=== PATIENT | female | born 1945 | race Caucasian/White ===

== ENCOUNTER → 2016-11-30 | Outpatient (CLI) | payer MEDICARE, OTHER ==
[~2016-11-30] MED LIST: ANTIVERT25 MG PO; AUGMENTIN 500 M1 TAB PO; MASON NATURAL2000 IU PO; METOPROLOL SR50 MG PO; SYNTHROID,LEV112 MCG PO; VICODIN 5/500 505 MG PO; Zofran4 MG PO
[2016-11-30 08:57] LABS: BASO % 0.4 % (0.0-1.0); EOS # 0.1 10*3/uL (0.0-0.4); EOS % 2.7 % (1.0-4.0); HEMATOCRIT 40.5 % (37.0-47.0); HEMOGLOBIN 13.3 g/dl (12.0-16.0); LYMPH # 1.1 10*3/uL (1.3-4.4); LYMPH % 20.9 % (27.0-41.0); MEAN CORPUSCULAR HGB 30.2 pg (27.0-31.0); MEAN CORPUSCULAR HGB CONC 32.8 g/dl (33.0-37.0); MEAN PLATELET VOLUME 9.5 fl (9.6-12.3); MONO # 0.4 10*3/uL (0.1-1.0); MONO % 7.4 % (3.0-9.0); NEUT # 3.5 10*3/uL (2.3-7.9); NEUT % 68.4 % (47.0-73.0); PLATELET COUNT AUTOMATED 153 10*3/uL (130-400); RED CELL DISTRI WIDTH 13.7 % (0-14.5); WHITE BLOOD COUNT 5.2 10*3/uL (4.8-10.8)
[2016-11-30 09:32] LABS: ALBUMIN 3.9 gm/dl (3.1-4.5); ALKALINE PHOSPHATASE 60 U/L (45-117); BILIRUBIN, TOTAL 0.6 mg/dl (0.2-1.0); BUN 17 mg/dl (7-24); CARBON DIOXIDE 30 mmol/L (21-32); CHLORIDE 108 mmol/L (98-107); CHOLESTEROL 141 mg/dL (<200); EST GLOM FILT AFRICAN AMERICAN > 60 ml/min; FREE T4 1.13 ng/dl (0.76-1.46); GLUCOSE 91 mg/dL (65-99); HDL CHOLESTEROL 53 mg/dl (40-60); LDL CHOLESTEROL 69 mg/dL (9-159); POTASSIUM 4.5 mmol/L (3.5-5.1); SGOT/AST 22 IU/L (3-35); SGPT/ALT 40 U/L (12-78); SODIUM 143 mmol/L (136-145); TOTAL PROTEIN 6.9 gm/dL (6.4-8.2); TRIGLYCERIDES 96 mg/dl (<150); VLDL CHOLESTEROL 19 mg/dL (6-40)
== END | disposition home or self-care (01) ==
LOC: LAB 08:40
PROVIDERS: Internal Medicine Endocrinology, Diabetes & Metabolism
DX: I10 Essential (primary) hypertension (principal); M51.27 Other intervertebral disc displacement, lumbosacral region; E03.8 Other specified hypothyroidism; E55.9 Vitamin D deficiency, unspecified; E78.00 Pure hypercholesterolemia, unspecified

== ENCOUNTER → 2017-03-02 | Outpatient (CLI) | payer MEDICARE ==
[2017-03-02 09:06] LABS: BASO % 0.4 % (0.0-1.0); EOS # 0.1 10*3/uL (0.0-0.4); EOS % 2.7 % (1.0-4.0); HEMATOCRIT 40.9 % (37.0-47.0); HEMOGLOBIN 13.1 g/dl (12.0-16.0); LYMPH # 1.1 10*3/uL (1.3-4.4); LYMPH % 20.8 % (27.0-41.0); MEAN CELL VOLUME 93.2 fl (81.0-99.0); MEAN CORPUSCULAR HGB 29.8 pg (27.0-31.0); MEAN PLATELET VOLUME 10.2 fl (9.6-12.3); MONO # 0.4 10*3/uL (0.1-1.0); MONO % 7.9 % (3.0-9.0); NEUT # 3.5 10*3/uL (2.3-7.9); PLATELET COUNT AUTOMATED 160 10*3/uL (130-400); RED BLOOD COUNT 4.39 10*6/uL (4.10-5.10); WHITE BLOOD COUNT 5.2 10*3/uL (4.8-10.8)
[2017-03-02 09:41] LABS: BUN 18 mg/dl (7-24); CARBON DIOXIDE 28 mmol/L (21-32); CHLORIDE 106 mmol/L (98-107); CHOLESTEROL 146 mg/dL (<200); EST GLOM FILT AFRICAN AMERICAN > 60 ml/min; GLUCOSE 87 mg/dL (65-99); HDL CHOLESTEROL 54 mg/dl (40-60); LDL CHOLESTEROL 73 mg/dL (9-159); POTASSIUM 4.2 mmol/L (3.5-5.1); SGPT/ALT 40 U/L (12-78); SODIUM 144 mmol/L (136-145); TRIGLYCERIDES 93 mg/dl (<150); VLDL CHOLESTEROL 19 mg/dL (6-40)
[2017-03-02 09:48] LABS: FREE T4 1.39 ng/dl (0.76-1.46)
== END | disposition home or self-care (01) ==
LOC: LAB 08:16
PROVIDERS: Internal Medicine Endocrinology, Diabetes & Metabolism
DX: I10 Essential (primary) hypertension (principal); E03.8 Other specified hypothyroidism; E78.00 Pure hypercholesterolemia, unspecified; E55.9 Vitamin D deficiency, unspecified; M81.8 Other osteoporosis without current pathological fracture

== ENCOUNTER → 2017-06-01 | Outpatient (CLI) | payer MEDICARE ==
[2017-06-01 09:34] LABS: BASO % 0.4 % (0.0-1.0); EOS # 0.1 10*3/uL (0.0-0.4); EOS % 2.3 % (1.0-4.0); HEMATOCRIT 40.6 % (37.0-47.0); HEMOGLOBIN 13.1 g/dl (12.0-16.0); LYMPH % 19.5 % (27.0-41.0); MEAN CELL VOLUME 93.8 fl (81.0-99.0); MEAN CORPUSCULAR HGB 30.3 pg (27.0-31.0); MEAN CORPUSCULAR HGB CONC 32.3 g/dl (33.0-37.0); MEAN PLATELET VOLUME 10.3 fl (9.6-12.3); MONO # 0.4 10*3/uL (0.1-1.0); MONO % 7.9 % (3.0-9.0); NEUT # 3.7 10*3/uL (2.3-7.9); NEUT % 69.7 % (47.0-73.0); PLATELET COUNT AUTOMATED 143 10*3/uL (130-400); RED BLOOD COUNT 4.33 10*6/uL (4.10-5.10); RED CELL DISTRI WIDTH 13.9 % (0-14.5); WHITE BLOOD COUNT 5.3 10*3/uL (4.8-10.8)
[2017-06-01 10:01] LABS: BUN 17 mg/dl (7-24); CHLORIDE 109 mmol/L (98-107); CHOLESTEROL 166 mg/dL (<200); CREATININE 0.76 mg/dL (0.55-1.02); HDL CHOLESTEROL 44 mg/dl (40-60); LDL CHOLESTEROL 97 mg/dL (9-159); POTASSIUM 4.1 mmol/L (3.5-5.1); SGPT/ALT 32 U/L (12-78); SODIUM 143 mmol/L (136-145); TRIGLYCERIDES 127 mg/dl (<150); VLDL CHOLESTEROL 25 mg/dL (6-40)
== END | disposition home or self-care (01) ==
LOC: LAB 08:57
PROVIDERS: Internal Medicine Endocrinology, Diabetes & Metabolism
DX: E78.00 Pure hypercholesterolemia, unspecified (principal); E03.8 Other specified hypothyroidism; E55.9 Vitamin D deficiency, unspecified; I10 Essential (primary) hypertension

== ENCOUNTER 2017-07-21 02:40 | Emergency (ER) | payer MEDICARE ==
[~2017-07-21] VITALS: Ht 162.5 cm; Wt 77.1 kg
[2017-07-21 03:20] LABS: HEMATOCRIT 40.6 % (37.0-47.0); HEMOGLOBIN 13.3 g/dl (12.0-16.0); MEAN CELL VOLUME 92.9 fl (81.0-99.0); MEAN CORPUSCULAR HGB 30.4 pg (27.0-31.0); MEAN CORPUSCULAR HGB CONC 32.8 g/dl (33.0-37.0); PLATELET COUNT AUTOMATED 152 10*3/uL (130-400); RED BLOOD COUNT 4.37 10*6/uL (4.10-5.10); RED CELL DISTRI WIDTH 13.7 % (0-14.5); WHITE BLOOD COUNT 13.4 10*3/uL (4.8-10.8)
[2017-07-21 03:29] LABS: BILIRUBIN NEGATIVE (NEGATIVE); BLOOD TRACE-INTACT (NEGATIVE); CLARITY SL CLOUDY (CLEAR); COLOR YELLOW (YELLOW); GLUCOSE NEGATIVE (NEGATIVE); KETONE NEGATIVE (NEGATIVE); LEUKO ESTERASE TRACE (NEGATIVE); NITRITE POSITIVE (NEGATIVE); UROBILINOGEN 0.2 E.U./dl (0.2-1.0)
[2017-07-21 03:32] LABS: ALBUMIN 3.9 gm/dl (3.1-4.5); ALKALINE PHOSPHATASE 62 U/L (45-117); BUN 27 mg/dl (7-24); CHLORIDE 106 mmol/L (98-107); CREATININE 1.06 mg/dL (0.55-1.02); LIPASE 115 U/L (73-393); POTASSIUM 3.6 mmol/L (3.5-5.1); SGOT/AST 15 IU/L (3-35); SGPT/ALT 32 U/L (12-78); SODIUM 139 mmol/L (136-145); TOTAL PROTEIN 7.6 gm/dL (6.4-8.2)
[2017-07-21 03:38] LABS: TROPONIN I < 0.015 ng/ml (<0.045)
[2017-07-21 03:39] LABS: BACTERIA TRACE
[2017-07-21 03:48] LABS: PLATELET SUFFICIENCY NORMAL (NORMAL); TOTAL CELLS COUNTED 100 #CELLS
[2017-07-21] MEDS ORDERED: NAPROSYN500 MG PO (04:53)
== END 2017-07-21 05:45 | disposition home or self-care (01) ==
LOC: ED 02:40
PROVIDERS: Student in an Organized Health Care Education/Training Program
DX: N20.1 Calculus of ureter (principal); Z98.890 Other specified postprocedural states; Z79.899 Other long term (current) drug therapy

== ENCOUNTER 2017-07-23 17:19 | Emergency (ER) | payer MEDICARE ==
[~2017-07-23 17:19] MED LIST changes: +NAPROSYN500 MG PO
[2017-07-23 17:53] LABS: HEMATOCRIT 36.4 % (37.0-47.0); HEMOGLOBIN 12.2 g/dl (12.0-16.0); MEAN CELL VOLUME 89.7 fl (81.0-99.0); MEAN CORPUSCULAR HGB CONC 33.5 g/dl (33.0-37.0); MEAN PLATELET VOLUME 11.2 fl (9.6-12.3); PLATELET COUNT AUTOMATED 51 10*3/uL (130-400); RED BLOOD COUNT 4.06 10*6/uL (4.10-5.10); RED CELL DISTRI WIDTH 13.9 % (0-14.5); WHITE BLOOD COUNT 2.5 10*3/uL (4.8-10.8)
[2017-07-23 18:05] LABS: ACT PARTIAL THROMBO TIME 27.3 SECONDS (20.8-31.5)
[2017-07-23 18:09] LABS: ALKALINE PHOSPHATASE 108 U/L (45-117); BUN 70 mg/dl (7-24); CHLORIDE 104 mmol/L (98-107); CREATININE 2.61 mg/dL (0.55-1.02); LIPASE 118 U/L (73-393); POTASSIUM 3.7 mmol/L (3.5-5.1); SGOT/AST 17 IU/L (3-35); SGPT/ALT 32 U/L (12-78); SODIUM 136 mmol/L (136-145); TOTAL PROTEIN 7.1 gm/dL (6.4-8.2)
[2017-07-23 18:10] LABS: TROPONIN I < 0.015 ng/ml (<0.045)
[2017-07-23 18:14] LABS: TOTAL CELLS COUNTED 100 #CELLS; TOXIC GRANULATION SLIGHT
[2017-07-23 18:15] LABS: BURR CELLS FEW; PLATELET SUFFICIENCY LOW (NORMAL)
[2017-07-23 21:27] LABS: BILIRUBIN NEGATIVE (NEGATIVE); BLOOD 1+ (NEGATIVE); CLARITY CLOUDY (CLEAR); COLOR YELLOW (YELLOW); GLUCOSE NEGATIVE (NEGATIVE); KETONE NEGATIVE (NEGATIVE); LEUKO ESTERASE 1+ (NEGATIVE); NITRITE POSITIVE (NEGATIVE); PH 5.5 (5.0-9.0)
[2017-07-23 21:31] LABS: BACTERIA 4+; WBC TNTC wbc/hpf (0-5)
== END 2017-07-23 22:12 | disposition short-term general hospital (02) ==
LOC: ED 17:19
PROVIDERS: Emergency Medicine
DX: A41.9 Sepsis, unspecified organism (principal); N17.9 Acute kidney failure, unspecified; R65.20 Severe sepsis without septic shock; N13.9 Obstructive and reflux uropathy, unspecified; N39.0 Urinary tract infection, site not specified; R31.9 Hematuria, unspecified; E86.0 Dehydration; R63.0 Anorexia; R19.7 Diarrhea, unspecified; Z79.899 Other long term (current) drug therapy

== ENCOUNTER → 2017-11-06 | Outpatient (CLI) | payer MEDICARE ==
[2017-11-06 08:51] LABS: BASO % 0.5 % (0.0-1.0); EOS # 0.1 10*3/uL (0.0-0.4); EOS % 2.3 % (1.0-4.0); HEMATOCRIT 41.8 % (37.0-47.0); HEMOGLOBIN 13.1 g/dl (12.0-16.0); LYMPH # 1.1 10*3/uL (1.3-4.4); LYMPH % 18.7 % (27.0-41.0); MEAN CELL VOLUME 92.7 fl (81.0-99.0); MEAN CORPUSCULAR HGB CONC 31.3 g/dl (33.0-37.0); MEAN PLATELET VOLUME 9.9 fl (9.6-12.3); MONO # 0.4 10*3/uL (0.1-1.0); MONO % 7.5 % (3.0-9.0); NEUT % 70.5 % (47.0-73.0); PLATELET COUNT AUTOMATED 162 10*3/uL (130-400); RED BLOOD COUNT 4.51 10*6/uL (4.10-5.10); RED CELL DISTRI WIDTH 14.5 % (0-14.5); WHITE BLOOD COUNT 5.7 10*3/uL (4.8-10.8)
[2017-11-06 09:46] LABS: ALBUMIN 3.6 gm/dl (3.1-4.5); CHLORIDE 107 mmol/L (98-107); SODIUM 141 mmol/L (136-145)
[2017-11-06 09:56] LABS: ALKALINE PHOSPHATASE 72 U/L (45-117); BUN 16 mg/dl (7-24); CHOLESTEROL 166 mg/dL (<200); CREATININE 0.89 mg/dL (0.55-1.02); FREE T4 0.98 ng/dl (0.76-1.46); HDL CHOLESTEROL 53 mg/dl (40-60); LDL CHOLESTEROL 84 mg/dL (9-159); SGOT/AST 22 IU/L (3-35); SGPT/ALT 39 U/L (12-78); TOTAL PROTEIN 7.1 gm/dL (6.4-8.2); TRIGLYCERIDES 147 mg/dl (<150); VLDL CHOLESTEROL 29 mg/dL (6-40)
== END | disposition home or self-care (01) ==
LOC: LAB 08:22
PROVIDERS: Internal Medicine Endocrinology, Diabetes & Metabolism
DX: I10 Essential (primary) hypertension (principal); E78.00 Pure hypercholesterolemia, unspecified; E03.8 Other specified hypothyroidism; E55.9 Vitamin D deficiency, unspecified

== ENCOUNTER → 2018-02-05 | Outpatient (CLI) | payer MEDICARE ==
[2018-02-05 09:07] LABS: BILIRUBIN NEGATIVE (NEGATIVE); BLOOD NEGATIVE (NEGATIVE); CLARITY SL CLOUDY (CLEAR); COLOR YELLOW (YELLOW); GLUCOSE NEGATIVE (NEGATIVE); KETONE NEGATIVE (NEGATIVE); LEUKO ESTERASE NEGATIVE (NEGATIVE); NITRITE NEGATIVE (NEGATIVE); PH 5.5 (5.0-9.0); SPECIFIC GRAVITY >= 1.030 (1.005-1.030); UROBILINOGEN 0.2 E.U./dl (0.2-1.0)
[2018-02-05 09:38] LABS: BACTERIA TRACE; WBC 0-2 wbc/hpf (0-5)
[2018-02-05 09:42] LABS: BUN 15 mg/dl (7-24); CHLORIDE 109 mmol/L (98-107); CHOLESTEROL 151 mg/dL (<200); CREATININE 0.86 mg/dL (0.55-1.02); FREE T4 1.13 ng/dl (0.76-1.46); HDL CHOLESTEROL 49 mg/dl (40-60); LDL CHOLESTEROL 83 mg/dL (9-159); SGPT/ALT 41 U/L (12-78); SODIUM 144 mmol/L (136-145); TRIGLYCERIDES 94 mg/dl (<150); VLDL CHOLESTEROL 19 mg/dL (6-40)
[2018-02-05 09:49] LABS: BASO % 0.4 % (0.0-1.0); EOS # 0.1 10*3/uL (0.0-0.4); EOS % 2.8 % (1.0-4.0); HEMATOCRIT 41.5 % (37.0-47.0); HEMOGLOBIN 12.9 g/dl (12.0-16.0); LYMPH % 20.1 % (27.0-41.0); MEAN CELL VOLUME 94.3 fl (81.0-99.0); MEAN CORPUSCULAR HGB 29.3 pg (27.0-31.0); MEAN CORPUSCULAR HGB CONC 31.1 g/dl (33.0-37.0); MEAN PLATELET VOLUME 10.4 fl (9.6-12.3); MONO # 0.4 10*3/uL (0.1-1.0); MONO % 8.5 % (3.0-9.0); NEUT # 3.4 10*3/uL (2.3-7.9); PLATELET COUNT AUTOMATED 160 10*3/uL (130-400); RED CELL DISTRI WIDTH 14.6 % (0-14.5); WHITE BLOOD COUNT 4.9 10*3/uL (4.8-10.8)
== END | disposition home or self-care (01) ==
LOC: LAB 08:29
PROVIDERS: Internal Medicine Endocrinology, Diabetes & Metabolism
DX: E78.00 Pure hypercholesterolemia, unspecified (principal); E03.8 Other specified hypothyroidism; E55.9 Vitamin D deficiency, unspecified; I10 Essential (primary) hypertension; Z79.899 Other long term (current) drug therapy

== ENCOUNTER → 2018-08-16 | Outpatient (CLI) | payer MEDICARE ==
[2018-08-16 09:44] LABS: BASO % 0.3 % (0.0-1.0); EOS # 0.1 10*3/uL (0.0-0.4); EOS % 2.1 % (1.0-4.0); HEMATOCRIT 41.1 % (37.0-47.0); HEMOGLOBIN 12.8 g/dl (12.0-16.0); LYMPH # 1.3 10*3/uL (1.3-4.4); LYMPH % 21.2 % (27.0-41.0); MEAN CELL VOLUME 94.7 fl (81.0-99.0); MEAN CORPUSCULAR HGB 29.5 pg (27.0-31.0); MEAN CORPUSCULAR HGB CONC 31.1 g/dl (33.0-37.0); MEAN PLATELET VOLUME 10.1 fl (9.6-12.3); MONO # 0.4 10*3/uL (0.1-1.0); MONO % 6.7 % (3.0-9.0); NEUT # 4.4 10*3/uL (2.3-7.9); NEUT % 69.4 % (47.0-73.0); PLATELET COUNT AUTOMATED 194 10*3/uL (130-400); RED BLOOD COUNT 4.34 10*6/uL (4.10-5.10); RED CELL DISTRI WIDTH 13.8 % (0-14.5); WHITE BLOOD COUNT 6.3 10*3/uL (4.8-10.8)
[2018-08-16 10:12] LABS: BUN 13 mg/dl (7-24); CHLORIDE 108 mmol/L (98-107); CHOLESTEROL 127 mg/dL (<200); CREATININE 0.81 mg/dL (0.55-1.02); POTASSIUM 3.8 mmol/L (3.5-5.1); SGPT/ALT 30 U/L (12-78); SODIUM 142 mmol/L (136-145)
[2018-08-16 10:23] LABS: FREE T4 1.47 ng/dl (0.76-1.46); HDL CHOLESTEROL 35 mg/dl (40-60); LDL CHOLESTEROL 69 mg/dL (9-159); TRIGLYCERIDES 117 mg/dl (<150); VLDL CHOLESTEROL 23 mg/dL (6-40)
== END | disposition home or self-care (01) ==
LOC: LAB 08:51
PROVIDERS: Internal Medicine Endocrinology, Diabetes & Metabolism
DX: I10 Essential (primary) hypertension (principal); E78.00 Pure hypercholesterolemia, unspecified; E55.9 Vitamin D deficiency, unspecified; E03.8 Other specified hypothyroidism

== ENCOUNTER → 2019-02-21 | Outpatient (CLI) | payer MEDICARE ==
[~2019-02-21] MED LIST changes: +LISINOPRIL40 MG PO; -MASON NATURAL2000 IU PO; -METOPROLOL SR50 MG PO; +METOPROLOL SUC100 M1 PO; +TERAZOSIN HCL1 M1 PO; +UNITHROID112 MCG PO; +VITAMIN D50000 UNIT PO; +ZESTRIL20 MG PO
[2019-02-21 09:08] LABS: BASO % 0.3 % (0.0-1.0); EOS # 0.2 10*3/uL (0.0-0.4); EOS % 2.6 % (1.0-4.0); HEMATOCRIT 41.3 % (37.0-47.0); HEMOGLOBIN 13.1 g/dl (12.0-16.0); LYMPH # 1.2 10*3/uL (1.3-4.4); LYMPH % 19.8 % (27.0-41.0); MEAN CELL VOLUME 93.9 fl (81.0-99.0); MEAN CORPUSCULAR HGB 29.8 pg (27.0-31.0); MEAN CORPUSCULAR HGB CONC 31.7 g/dl (33.0-37.0); MEAN PLATELET VOLUME 10.7 fl (9.6-12.3); MONO # 0.5 10*3/uL (0.1-1.0); MONO % 8.2 % (3.0-9.0); NEUT % 68.9 % (47.0-73.0); PLATELET COUNT AUTOMATED 156 10*3/uL (130-400); RED CELL DISTRI WIDTH 13.9 % (0-14.5); WHITE BLOOD COUNT 5.9 10*3/uL (4.8-10.8)
[2019-02-21 09:17] LABS: BUN 18 mg/dl (7-24); CHLORIDE 113 mmol/L (98-107); CHOLESTEROL 126 mg/dL (<200); CREATININE 0.91 mg/dL (0.55-1.02); HDL CHOLESTEROL 46 mg/dl (40-60); LDL CHOLESTEROL 60 mg/dL (9-159); POTASSIUM 4.1 mmol/L (3.5-5.1); SGPT/ALT 53 U/L (12-78); SODIUM 143 mmol/L (136-145); TRIGLYCERIDES 102 mg/dl (<150); VLDL CHOLESTEROL 20 mg/dL (6-40)
[2019-02-21 09:23] LABS: THYROID STIM HORMONE (HS) 0.315 uIU/ml (0.358-4.75)
== END | disposition home or self-care (01) ==
LOC: LAB 08:23
PROVIDERS: Internal Medicine Endocrinology, Diabetes & Metabolism
DX: I10 Essential (primary) hypertension (principal); E03.9 Hypothyroidism, unspecified; E78.2 Mixed hyperlipidemia; J45.20 Mild intermittent asthma, uncomplicated

== ENCOUNTER → 2019-05-23 | Outpatient (CLI) | payer MEDICARE ==
[2019-05-23 08:53] LABS: BASO % 0.5 % (0.0-1.0); EOS # 0.2 10*3/uL (0.0-0.4); EOS % 2.7 % (1.0-4.0); HEMATOCRIT 40.9 % (37.0-47.0); LYMPH # 1.2 10*3/uL (1.3-4.4); LYMPH % 21.3 % (27.0-41.0); MEAN CELL VOLUME 93.8 fl (81.0-99.0); MEAN CORPUSCULAR HGB 29.8 pg (27.0-31.0); MEAN CORPUSCULAR HGB CONC 31.8 g/dl (33.0-37.0); MEAN PLATELET VOLUME 10.5 fl (9.6-12.3); MONO # 0.5 10*3/uL (0.1-1.0); MONO % 8.3 % (3.0-9.0); NEUT # 3.8 10*3/uL (2.3-7.9); NEUT % 66.8 % (47.0-73.0); PLATELET COUNT AUTOMATED 169 10*3/uL (130-400); RED BLOOD COUNT 4.36 10*6/uL (4.10-5.10); RED CELL DISTRI WIDTH 13.9 % (0-14.5); WHITE BLOOD COUNT 5.6 10*3/uL (4.8-10.8)
[2019-05-23 09:21] LABS: BUN 15 mg/dl (7-24); CHLORIDE 109 mmol/L (98-107); CHOLESTEROL 133 mg/dL (<200); CREATININE 0.88 mg/dL (0.55-1.02); POTASSIUM 4.3 mmol/L (3.5-5.1); SGPT/ALT 38 U/L (12-78); SODIUM 141 mmol/L (136-145); TRIGLYCERIDES 78 mg/dl (<150); VLDL CHOLESTEROL 16 mg/dL (6-40)
[2019-05-23 09:30] LABS: FREE T4 1.45 ng/dl (0.76-1.46); HDL CHOLESTEROL 45 mg/dl (40-60); LDL CHOLESTEROL 72 mg/dL (9-159); THYROID STIM HORMONE (HS) 0.365 uIU/ml (0.358-4.75)
== END | disposition home or self-care (01) ==
LOC: LAB 08:21
PROVIDERS: Internal Medicine Endocrinology, Diabetes & Metabolism
DX: I10 Essential (primary) hypertension (principal); E03.9 Hypothyroidism, unspecified; E78.2 Mixed hyperlipidemia; E55.9 Vitamin D deficiency, unspecified

== ENCOUNTER → 2019-08-16 | Outpatient (CLI) | payer MEDICARE ==
[2019-08-16 08:36] LABS: BASO % 0.4 % (0.0-1.0); EOS # 0.2 10*3/uL (0.0-0.4); EOS % 3.7 % (1.0-4.0); HEMATOCRIT 41.8 % (37.0-47.0); HEMOGLOBIN 13.3 g/dl (12.0-16.0); LYMPH # 1.3 10*3/uL (1.3-4.4); LYMPH % 25.8 % (27.0-41.0); MEAN CELL VOLUME 94.1 fl (81.0-99.0); MEAN CORPUSCULAR HGB CONC 31.8 g/dl (33.0-37.0); MEAN PLATELET VOLUME 9.9 fl (9.6-12.3); MONO # 0.6 10*3/uL (0.1-1.0); NEUT # 2.8 10*3/uL (2.3-7.9); NEUT % 56.9 % (47.0-73.0); PLATELET COUNT AUTOMATED 160 10*3/uL (130-400); RED BLOOD COUNT 4.44 10*6/uL (4.10-5.10); RED CELL DISTRI WIDTH 14.3 % (0-14.5); WHITE BLOOD COUNT 4.8 10*3/uL (4.8-10.8)
[2019-08-16 09:10] LABS: BUN 18 mg/dl (7-24); CHLORIDE 111 mmol/L (98-107); CHOLESTEROL 122 mg/dL (<200); CREATININE 0.98 mg/dL (0.55-1.02); FREE T4 1.28 ng/dl (0.76-1.46); HDL CHOLESTEROL 30 mg/dl (40-60); LDL CHOLESTEROL 68 mg/dL (9-159); POTASSIUM 3.8 mmol/L (3.5-5.1); SGPT/ALT 31 U/L (12-78); SODIUM 142 mmol/L (136-145); TRIGLYCERIDES 118 mg/dl (<150); VLDL CHOLESTEROL 24 mg/dL (6-40)
== END | disposition home or self-care (01) ==
LOC: LAB 08:08
PROVIDERS: Internal Medicine Endocrinology, Diabetes & Metabolism
DX: I10 Essential (primary) hypertension (principal); E78.2 Mixed hyperlipidemia; E03.8 Other specified hypothyroidism; E55.9 Vitamin D deficiency, unspecified

== ENCOUNTER → 2020-01-17 | Outpatient (CLI) | payer MEDICARE ==
[2020-01-17 09:43] LABS: BASO % 0.4 % (0.0-1.0); EOS # 0.1 10*3/uL (0.0-0.4); EOS % 2.7 % (1.0-4.0); HEMATOCRIT 41.7 % (37.0-47.0); LYMPH # 1.1 10*3/uL (1.3-4.4); LYMPH % 22.1 % (27.0-41.0); MEAN CELL VOLUME 93.5 fl (81.0-99.0); MEAN CORPUSCULAR HGB 30.3 pg (27.0-31.0); MEAN CORPUSCULAR HGB CONC 32.4 g/dl (33.0-37.0); MEAN PLATELET VOLUME 10.4 fl (9.6-12.3); MONO # 0.4 10*3/uL (0.1-1.0); MONO % 8.1 % (3.0-9.0); NEUT # 3.2 10*3/uL (2.3-7.9); NEUT % 66.5 % (47.0-73.0); PLATELET COUNT AUTOMATED 152 10*3/uL (130-400); RED BLOOD COUNT 4.46 10*6/uL (4.10-5.10); RED CELL DISTRI WIDTH 13.9 % (0-14.5); WHITE BLOOD COUNT 4.8 10*3/uL (4.8-10.8)
[2020-01-17 10:10] LABS: BUN 19 mg/dl (7-24); CHLORIDE 110 mmol/L (98-107); CHOLESTEROL 156 mg/dL (<200); CREATININE 0.87 mg/dL (0.55-1.02); HDL CHOLESTEROL 44 mg/dl (40-60); LDL CHOLESTEROL 92 mg/dL (9-159); POTASSIUM 4.1 mmol/L (3.5-5.1); SGPT/ALT 35 U/L (12-78); SODIUM 142 mmol/L (136-145); TRIGLYCERIDES 101 mg/dl (<150); VLDL CHOLESTEROL 20 mg/dL (6-40)
[2020-01-17 10:16] LABS: THYROID STIM HORMONE (HS) 0.658 uIU/ml (0.358-4.75)
== END | disposition home or self-care (01) ==
LOC: LAB 08:59
PROVIDERS: Internal Medicine Endocrinology, Diabetes & Metabolism
DX: E03.8 Other specified hypothyroidism (principal); I10 Essential (primary) hypertension; E78.2 Mixed hyperlipidemia

== ENCOUNTER → 2020-04-16 | Outpatient (CLI) | payer MEDICARE ==
[2020-04-16 09:59] LABS: BASO % 0.4 % (0.0-1.0); EOS # 0.1 10*3/uL (0.0-0.4); EOS % 2.7 % (1.0-4.0); HEMATOCRIT 42.4 % (37.0-47.0); LYMPH % 18.5 % (27.0-41.0); MEAN CELL VOLUME 93.4 fl (81.0-99.0); MEAN CORPUSCULAR HGB 29.5 pg (27.0-31.0); MEAN CORPUSCULAR HGB CONC 31.6 g/dl (33.0-37.0); MEAN PLATELET VOLUME 10.2 fl (9.6-12.3); MONO # 0.4 10*3/uL (0.1-1.0); MONO % 7.7 % (3.0-9.0); NEUT # 3.7 10*3/uL (2.3-7.9); NEUT % 70.5 % (47.0-73.0); PLATELET COUNT AUTOMATED 170 10*3/uL (130-400); RED BLOOD COUNT 4.54 10*6/uL (4.10-5.10); RED CELL DISTRI WIDTH 13.9 % (0-14.5); WHITE BLOOD COUNT 5.2 10*3/uL (4.8-10.8)
[2020-04-16 10:22] LABS: BUN 18 mg/dl (7-24); CHLORIDE 114 mmol/L (98-107); CHOLESTEROL 162 mg/dL (<200); CREATININE 0.96 mg/dL (0.55-1.02); FREE T4 1.42 ng/dl (0.76-1.46); HDL CHOLESTEROL 43 mg/dl (40-60); LDL CHOLESTEROL 102 mg/dL (9-159); POTASSIUM 4.4 mmol/L (3.5-5.1); SGPT/ALT 47 U/L (12-78); SODIUM 144 mmol/L (136-145); TRIGLYCERIDES 83 mg/dl (<150); VLDL CHOLESTEROL 17 mg/dL (6-40)
== END | disposition home or self-care (01) ==
LOC: LAB 09:12
PROVIDERS: Internal Medicine Endocrinology, Diabetes & Metabolism
DX: I10 Essential (primary) hypertension (principal); E03.8 Other specified hypothyroidism; E78.2 Mixed hyperlipidemia; E55.9 Vitamin D deficiency, unspecified

== ENCOUNTER → 2020-07-16 | Outpatient (CLI) | payer MEDICARE ==
[2020-07-16 08:44] LABS: BASO % 0.3 % (0.0-1.0); EOS # 0.1 10*3/uL (0.0-0.4); EOS % 2.4 % (1.0-4.0); HEMATOCRIT 41.5 % (37.0-47.0); LYMPH # 1.1 10*3/uL (1.3-4.4); LYMPH % 19.4 % (27.0-41.0); MEAN CELL VOLUME 95.4 fl (81.0-99.0); MEAN CORPUSCULAR HGB 29.9 pg (27.0-31.0); MEAN CORPUSCULAR HGB CONC 31.3 g/dl (33.0-37.0); MEAN PLATELET VOLUME 10.3 fl (9.6-12.3); MONO # 0.4 10*3/uL (0.1-1.0); MONO % 7.2 % (3.0-9.0); NEUT % 70.5 % (47.0-73.0); PLATELET COUNT AUTOMATED 153 10*3/uL (130-400); RED BLOOD COUNT 4.35 10*6/uL (4.10-5.10); WHITE BLOOD COUNT 5.7 10*3/uL (4.8-10.8)
[2020-07-16 09:09] LABS: BUN 14 mg/dl (7-24); CHLORIDE 112 mmol/L (98-107); CHOLESTEROL 143 mg/dL (<200); CREATININE 0.85 mg/dL (0.55-1.02); HDL CHOLESTEROL 51 mg/dl (40-60); LDL CHOLESTEROL 74 mg/dL (9-159); POTASSIUM 4.6 mmol/L (3.5-5.1); SGPT/ALT 33 U/L (12-78); SODIUM 145 mmol/L (136-145); TRIGLYCERIDES 91 mg/dl (<150); VLDL CHOLESTEROL 18 mg/dL (6-40)
== END | disposition home or self-care (01) ==
LOC: LAB 08:11
PROVIDERS: ATTEND Internal Medicine Endocrinology, Diabetes & Metabolism
DX: I10 Essential (primary) hypertension (principal); E03.9 Hypothyroidism, unspecified; E55.9 Vitamin D deficiency, unspecified; E78.2 Mixed hyperlipidemia

== ENCOUNTER → 2020-10-16 | Outpatient (CLI) | payer MEDICARE ==
[2020-10-16 10:00] LABS: BASO % 0.5 % (0.0-1.0); EOS # 0.2 10*3/uL (0.0-0.4); EOS % 2.6 % (1.0-4.0); HEMATOCRIT 44.7 % (37.0-47.0); LYMPH # 1.2 10*3/uL (1.3-4.4); LYMPH % 20.3 % (27.0-41.0); MEAN CELL VOLUME 96.1 fl (81.0-99.0); MEAN CORPUSCULAR HGB 29.7 pg (27.0-31.0); MEAN CORPUSCULAR HGB CONC 30.9 g/dl (33.0-37.0); MEAN PLATELET VOLUME 10.4 fl (9.6-12.3); MONO # 0.5 10*3/uL (0.1-1.0); MONO % 8.2 % (3.0-9.0); NEUT # 3.9 10*3/uL (2.3-7.9); NEUT % 68.1 % (47.0-73.0); PLATELET COUNT AUTOMATED 166 10*3/uL (130-400); RED BLOOD COUNT 4.65 10*6/uL (4.10-5.10); RED CELL DISTRI WIDTH 14.1 % (0-14.5); WHITE BLOOD COUNT 5.8 10*3/uL (4.8-10.8)
[2020-10-16 10:26] LABS: ALBUMIN 3.8 gm/dl (3.1-4.5); BUN 20 mg/dl (7-24); CHLORIDE 112 mmol/L (98-107); CHOLESTEROL 145 mg/dL (<200); CREATININE 0.97 mg/dL (0.55-1.02); FREE T4 1.43 ng/dl (0.76-1.46); HDL CHOLESTEROL 50 mg/dl (40-60); LDL CHOLESTEROL 78 mg/dL (9-159); POTASSIUM 4.3 mmol/L (3.5-5.1); SGOT/AST 19 IU/L (3-35); SGPT/ALT 39 U/L (12-78); SODIUM 142 mmol/L (136-145); TOTAL PROTEIN 7.4 gm/dL (6.4-8.2); TRIGLYCERIDES 86 mg/dl (<150); VLDL CHOLESTEROL 17 mg/dL (6-40)
[2020-10-16 10:32] LABS: ALKALINE PHOSPHATASE 70 U/L (45-117)
== END | disposition home or self-care (01) ==
LOC: LAB 08:36
PROVIDERS: ATTEND Internal Medicine Endocrinology, Diabetes & Metabolism
DX: E55.9 Vitamin D deficiency, unspecified (principal); E03.8 Other specified hypothyroidism; E78.2 Mixed hyperlipidemia

== ENCOUNTER → 2021-01-21 | Outpatient (CLI) | payer MEDICARE ==
[2021-01-21 09:22] LABS: BASO % 0.4 % (0.0-1.0); EOS # 0.1 10*3/uL (0.0-0.4); EOS % 2.5 % (1.0-4.0); HEMATOCRIT 42.6 % (37.0-47.0); LYMPH % 17.9 % (27.0-41.0); MEAN CELL VOLUME 93.8 fl (81.0-99.0); MEAN CORPUSCULAR HGB CONC 31.9 g/dl (33.0-37.0); MEAN PLATELET VOLUME 10.2 fl (9.6-12.3); MONO # 0.5 10*3/uL (0.1-1.0); MONO % 8.6 % (3.0-9.0); NEUT % 70.2 % (47.0-73.0); PLATELET COUNT AUTOMATED 170 10*3/uL (130-400); RED BLOOD COUNT 4.54 10*6/uL (4.10-5.10); RED CELL DISTRI WIDTH 13.7 % (0-14.5); WHITE BLOOD COUNT 5.7 10*3/uL (4.8-10.8)
[2021-01-21 09:39] LABS: ALBUMIN 3.7 gm/dl (3.1-4.5); ALKALINE PHOSPHATASE 63 U/L (45-117); BUN 16 mg/dl (7-24); CHLORIDE 112 mmol/L (98-107); CHOLESTEROL 147 mg/dL (<200); CREATININE 0.94 mg/dL (0.55-1.02); FREE T4 1.38 ng/dl (0.76-1.46); LDL CHOLESTEROL 84 mg/dL (9-159); POTASSIUM 4.6 mmol/L (3.5-5.1); SGOT/AST 13 IU/L (3-35); SGPT/ALT 31 U/L (12-78); SODIUM 142 mmol/L (136-145); TRIGLYCERIDES 88 mg/dl (<150)
[2021-01-21 09:43] LABS: THYROID STIM HORMONE (HS) 0.371 uIU/ml (0.358-4.75)
== END | disposition home or self-care (01) ==
LOC: LAB 08:47
PROVIDERS: ATTEND Internal Medicine Endocrinology, Diabetes & Metabolism
DX: I10 Essential (primary) hypertension (principal); E03.4 Atrophy of thyroid (acquired); E78.2 Mixed hyperlipidemia; E55.9 Vitamin D deficiency, unspecified

== ENCOUNTER → 2021-04-27 | Outpatient (CLI) | payer MEDICARE ==
[2021-04-27 09:01] LABS: BASO % 0.5 % (0.0-1.0); EOS # 0.1 10*3/uL (0.0-0.4); EOS % 2.2 % (1.0-4.0); HEMATOCRIT 41.9 % (37.0-47.0); LYMPH # 1.1 10*3/uL (1.3-4.4); LYMPH % 18.5 % (27.0-41.0); MEAN CELL VOLUME 93.3 fl (81.0-99.0); MEAN CORPUSCULAR HGB 29.8 pg (27.0-31.0); MEAN PLATELET VOLUME 9.6 fl (9.6-12.3); MONO # 0.5 10*3/uL (0.1-1.0); MONO % 8.1 % (3.0-9.0); NEUT # 4.2 10*3/uL (2.3-7.9); NEUT % 70.5 % (47.0-73.0); PLATELET COUNT AUTOMATED 173 10*3/uL (130-400); RED BLOOD COUNT 4.49 10*6/uL (4.10-5.10); RED CELL DISTRI WIDTH 13.6 % (0-14.5); WHITE BLOOD COUNT 5.9 10*3/uL (4.8-10.8)
[2021-04-27 09:11] LABS: ALBUMIN 3.7 gm/dl (3.1-4.5); BUN 11 mg/dl (7-24); CHLORIDE 111 mmol/L (98-107); CREATININE 0.76 mg/dL (0.55-1.02); POTASSIUM 3.9 mmol/L (3.5-5.1); SODIUM 144 mmol/L (136-145)
[2021-04-27 09:13] LABS: BUN 12 mg/dl (7-24); CHLORIDE 111 mmol/L (98-107); CHOLESTEROL 134 mg/dL (<200); CREATININE 0.77 mg/dL (0.55-1.02); POTASSIUM 3.9 mmol/L (3.5-5.1); SGPT/ALT 32 U/L (12-78); SODIUM 143 mmol/L (136-145); TRIGLYCERIDES 100 mg/dl (<150)
[2021-04-27 09:21] LABS: LDL CHOLESTEROL 72 mg/dL (9-159); THYROID STIM HORMONE (HS) 0.267 uIU/ml (0.358-4.75)
== END | disposition home or self-care (01) ==
LOC: LAB 08:31
PROVIDERS: Internal Medicine; ATTEND Internal Medicine Endocrinology, Diabetes & Metabolism
DX: E78.5 Hyperlipidemia, unspecified (principal); I10 Essential (primary) hypertension; R26.89 Other abnormalities of gait and mobility; Z79.899 Other long term (current) drug therapy

== ENCOUNTER → 2021-07-28 | Outpatient (CLI) | payer MEDICARE ==
[2021-07-28 10:11] LABS: BASO % 0.6 % (0.0-1.0); EOS # 0.1 10*3/uL (0.0-0.4); EOS % 1.7 % (1.0-4.0); HEMATOCRIT 43.6 % (37.0-47.0); LYMPH % 18.5 % (27.0-41.0); MEAN CELL VOLUME 93.8 fl (81.0-99.0); MEAN CORPUSCULAR HGB 29.9 pg (27.0-31.0); MEAN CORPUSCULAR HGB CONC 31.9 g/dl (33.0-37.0); MEAN PLATELET VOLUME 10.3 fl (9.6-12.3); MONO # 0.4 10*3/uL (0.1-1.0); MONO % 7.9 % (3.0-9.0); NEUT # 3.9 10*3/uL (2.3-7.9); NEUT % 71.1 % (47.0-73.0); PLATELET COUNT AUTOMATED 158 10*3/uL (130-400); RED BLOOD COUNT 4.65 10*6/uL (4.10-5.10); RED CELL DISTRI WIDTH 13.9 % (0-14.5); WHITE BLOOD COUNT 5.4 10*3/uL (4.8-10.8)
[2021-07-28 10:40] LABS: ALBUMIN 3.7 gm/dl (3.1-4.5); ALKALINE PHOSPHATASE 71 U/L (45-117); BUN 22 mg/dl (7-24); CHLORIDE 109 mmol/L (98-107); CHOLESTEROL 136 mg/dL (<200); FREE T4 1.41 ng/dl (0.76-1.46); LDL CHOLESTEROL 72 mg/dL (9-159); SGOT/AST 13 IU/L (3-35); SGPT/ALT 33 U/L (12-78); SODIUM 142 mmol/L (136-145); TOTAL PROTEIN 7.5 gm/dL (6.4-8.2); TRIGLYCERIDES 90 mg/dl (<150)
[2021-07-28 10:46] LABS: THYROID STIM HORMONE (HS) 0.304 uIU/ml (0.358-4.75)
== END | disposition home or self-care (01) ==
LOC: LAB 09:06
PROVIDERS: ATTEND Internal Medicine Endocrinology, Diabetes & Metabolism
DX: I89.0 Lymphedema, not elsewhere classified (principal); E78.2 Mixed hyperlipidemia; E55.9 Vitamin D deficiency, unspecified; I10 Essential (primary) hypertension

== ENCOUNTER → 2021-10-28 | Outpatient (CLI) | payer MEDICARE ==
[2021-10-28 09:00] LABS: BASO % 0.7 % (0.0-1.0); EOS # 0.2 10*3/uL (0.0-0.4); EOS % 2.5 % (1.0-4.0); HEMATOCRIT 43.5 % (37.0-47.0); LYMPH # 1.1 10*3/uL (1.3-4.4); LYMPH % 18.2 % (27.0-41.0); MEAN CORPUSCULAR HGB 30.2 pg (27.0-31.0); MEAN CORPUSCULAR HGB CONC 32.2 g/dl (33.0-37.0); MEAN PLATELET VOLUME 10.1 fl (9.6-12.3); MONO # 0.5 10*3/uL (0.1-1.0); MONO % 7.9 % (3.0-9.0); NEUT # 4.2 10*3/uL (2.3-7.9); NEUT % 70.4 % (47.0-73.0); PLATELET COUNT AUTOMATED 162 10*3/uL (130-400); RED BLOOD COUNT 4.63 10*6/uL (4.10-5.10); RED CELL DISTRI WIDTH 13.6 % (0-14.5); WHITE BLOOD COUNT 5.9 10*3/uL (4.8-10.8)
[2021-10-28 09:19] LABS: BUN 19 mg/dl (7-24); CHLORIDE 110 mmol/L (98-107); CHOLESTEROL 144 mg/dL (<200); CREATININE 0.96 mg/dL (0.55-1.02); FREE T4 1.27 ng/dl (0.76-1.46); LDL CHOLESTEROL 78 mg/dL (9-159); POTASSIUM 4.2 mmol/L (3.5-5.1); SGPT/ALT 47 U/L (12-78); SODIUM 140 mmol/L (136-145); TRIGLYCERIDES 85 mg/dl (<150)
[2021-10-28 09:25] LABS: THYROID STIM HORMONE (HS) 0.684 uIU/ml (0.358-4.75)
== END | disposition home or self-care (01) ==
LOC: LAB 08:23
PROVIDERS: ATTEND Internal Medicine Endocrinology, Diabetes & Metabolism
DX: I10 Essential (primary) hypertension (principal); E55.9 Vitamin D deficiency, unspecified; E03.4 Atrophy of thyroid (acquired); I89.0 Lymphedema, not elsewhere classified; E78.2 Mixed hyperlipidemia

== ENCOUNTER → 2022-01-27 | Outpatient (CLI) | payer MEDICARE ==
[2022-01-27 09:30] LABS: BASO % 0.4 % (0.0-1.0); EOS # 0.1 10*3/uL (0.0-0.4); EOS % 2.5 % (1.0-4.0); HEMATOCRIT 41.2 % (37.0-47.0); LYMPH % 19.6 % (27.0-41.0); MEAN CELL VOLUME 93.2 fl (81.0-99.0); MEAN CORPUSCULAR HGB 30.3 pg (27.0-31.0); MEAN CORPUSCULAR HGB CONC 32.5 g/dl (33.0-37.0); MEAN PLATELET VOLUME 10.5 fl (9.6-12.3); MONO # 0.4 10*3/uL (0.1-1.0); NEUT # 3.6 10*3/uL (2.3-7.9); NEUT % 69.3 % (47.0-73.0); PLATELET COUNT AUTOMATED 155 10*3/uL (130-400); RED BLOOD COUNT 4.42 10*6/uL (4.10-5.10); RED CELL DISTRI WIDTH 13.7 % (0-14.5); WHITE BLOOD COUNT 5.1 10*3/uL (4.8-10.8)
[2022-01-27 09:49] LABS: BUN 15 mg/dl (7-24); CHLORIDE 113 mmol/L (98-107); CHOLESTEROL 116 mg/dL (<200); CREATININE 0.76 mg/dL (0.55-1.02); FREE T4 1.54 ng/dl (0.76-1.46); LDL CHOLESTEROL 62 mg/dL (9-159); SGPT/ALT 39 U/L (12-78); SODIUM 143 mmol/L (136-145); TRIGLYCERIDES 56 mg/dl (<150)
[2022-01-27 09:55] LABS: THYROID STIM HORMONE (HS) 0.219 uIU/ml (0.358-4.75)
== END | disposition home or self-care (01) ==
LOC: LAB 08:45
PROVIDERS: ATTEND Internal Medicine Endocrinology, Diabetes & Metabolism
DX: E78.2 Mixed hyperlipidemia (principal); E03.4 Atrophy of thyroid (acquired); E55.9 Vitamin D deficiency, unspecified; I89.0 Lymphedema, not elsewhere classified; I10 Essential (primary) hypertension; G63 Polyneuropathy in diseases classified elsewhere

== ENCOUNTER → 2022-04-28 | Outpatient (CLI) | payer MEDICARE ==
[2022-04-28 09:16] LABS: BASO % 0.4 % (0.0-1.0); EOS # 0.1 10*3/uL (0.0-0.4); EOS % 2.3 % (1.0-4.0); HEMATOCRIT 41.4 % (37.0-47.0); LYMPH % 18.7 % (27.0-41.0); MEAN CELL VOLUME 93.7 fl (81.0-99.0); MEAN CORPUSCULAR HGB 29.9 pg (27.0-31.0); MEAN CORPUSCULAR HGB CONC 31.9 g/dl (33.0-37.0); MEAN PLATELET VOLUME 10.2 fl (9.6-12.3); MONO # 0.5 10*3/uL (0.1-1.0); MONO % 9.4 % (3.0-9.0); NEUT # 3.6 10*3/uL (2.3-7.9); PLATELET COUNT AUTOMATED 178 10*3/uL (130-400); RED BLOOD COUNT 4.42 10*6/uL (4.10-5.10); RED CELL DISTRI WIDTH 13.6 % (0-14.5); WHITE BLOOD COUNT 5.2 10*3/uL (4.8-10.8)
[2022-04-28 09:37] LABS: BUN 12 mg/dl (7-24); CHLORIDE 112 mmol/L (98-107); CHOLESTEROL 126 mg/dL (<200); CREATININE 0.82 mg/dL (0.55-1.02); POTASSIUM 4.2 mmol/L (3.5-5.1); SGOT/AST 20 IU/L (3-35); SGPT/ALT 39 U/L (12-78); SODIUM 142 mmol/L (136-145); TOTAL PROTEIN 6.6 gm/dL (6.4-8.2); TRIGLYCERIDES 66 mg/dl (<150)
[2022-04-28 09:41] LABS: ALKALINE PHOSPHATASE 65 U/L (45-117); FREE T4 1.83 ng/dl (0.76-1.46); LDL CHOLESTEROL 66 mg/dL (9-159); THYROID STIM HORMONE (HS) 0.184 uIU/ml (0.358-4.75)
== END | disposition home or self-care (01) ==
LOC: LAB 08:31
PROVIDERS: ATTEND Internal Medicine Endocrinology, Diabetes & Metabolism
DX: E78.2 Mixed hyperlipidemia (principal); E55.9 Vitamin D deficiency, unspecified; G63 Polyneuropathy in diseases classified elsewhere; I89.0 Lymphedema, not elsewhere classified; I10 Essential (primary) hypertension; E03.4 Atrophy of thyroid (acquired)

== ENCOUNTER → 2022-07-22 | Outpatient (CLI) | payer MEDICARE ==
[2022-07-22 08:15] LABS: BASO % 0.8 % (0.0-1.0); EOS # 0.1 10*3/uL (0.0-0.4); EOS % 2.3 % (1.0-4.0); HEMATOCRIT 45.1 % (37.0-47.0); LYMPH # 1.2 10*3/uL (1.3-4.4); LYMPH % 22.4 % (27.0-41.0); MEAN CELL VOLUME 93.4 fl (81.0-99.0); MEAN CORPUSCULAR HGB 30.2 pg (27.0-31.0); MEAN CORPUSCULAR HGB CONC 32.4 g/dl (33.0-37.0); MEAN PLATELET VOLUME 9.6 fl (9.6-12.3); MONO # 0.5 10*3/uL (0.1-1.0); MONO % 8.6 % (3.0-9.0); NEUT # 3.5 10*3/uL (2.3-7.9); NEUT % 65.7 % (47.0-73.0); PLATELET COUNT AUTOMATED 180 10*3/uL (130-400); RED BLOOD COUNT 4.83 10*6/uL (4.10-5.10); RED CELL DISTRI WIDTH 13.9 % (0-14.5); WHITE BLOOD COUNT 5.3 10*3/uL (4.8-10.8)
[2022-07-22 08:38] LABS: ALKALINE PHOSPHATASE 77 U/L (45-117); BUN 17 mg/dl (7-24); CHLORIDE 109 mmol/L (98-107); CHOLESTEROL 154 mg/dL (<200); CREATININE 0.85 mg/dL (0.55-1.02); FREE T4 1.33 ng/dl (0.76-1.46); LDL CHOLESTEROL 83 mg/dL (9-159); POTASSIUM 4.4 mmol/L (3.5-5.1); SGPT/ALT 36 U/L (12-78); SODIUM 142 mmol/L (136-145); TOTAL PROTEIN 7.2 gm/dL (6.4-8.2); TRIGLYCERIDES 124 mg/dl (<150)
== END ==
LOC: LAB 07:52
PROVIDERS: ATTEND Internal Medicine Endocrinology, Diabetes & Metabolism
DX: I89.0 Lymphedema, not elsewhere classified (principal); I10 Essential (primary) hypertension; E03.4 Atrophy of thyroid (acquired); E78.2 Mixed hyperlipidemia; E55.9 Vitamin D deficiency, unspecified; G63 Polyneuropathy in diseases classified elsewhere

== ENCOUNTER → 2022-10-19 | Outpatient (CLI) | payer MEDICARE ==
[2022-10-19 09:06] LABS: BASO % 0.4 % (0.0-1.0); EOS # 0.1 10*3/uL (0.0-0.4); EOS % 2.5 % (1.0-4.0); HEMATOCRIT 43.4 % (37.0-47.0); LYMPH # 1.1 10*3/uL (1.3-4.4); LYMPH % 23.2 % (27.0-41.0); MEAN CELL VOLUME 94.8 fl (81.0-99.0); MEAN CORPUSCULAR HGB 30.1 pg (27.0-31.0); MEAN CORPUSCULAR HGB CONC 31.8 g/dl (33.0-37.0); MEAN PLATELET VOLUME 9.7 fl (9.6-12.3); MONO # 0.4 10*3/uL (0.1-1.0); MONO % 7.5 % (3.0-9.0); NEUT # 3.2 10*3/uL (2.3-7.9); NEUT % 66.2 % (47.0-73.0); PLATELET COUNT AUTOMATED 145 10*3/uL (130-400); RED BLOOD COUNT 4.58 10*6/uL (4.10-5.10); RED CELL DISTRI WIDTH 13.9 % (0-14.5); WHITE BLOOD COUNT 4.8 10*3/uL (4.8-10.8)
[2022-10-19 09:32] LABS: BUN 15 mg/dl (9-23); CHLORIDE 107 mmol/L (98-107); CHOLESTEROL 150 mg/dL (<200); FREE T4 1.52 ng/dl (0.89-1.76); LDL CHOLESTEROL 83 mg/dL (9-159); POTASSIUM 4.6 mmol/L (3.4-5.1); SGPT/ALT 29 U/L (10-49); THYROID STIM HORMONE (HS) 1.732 uIU/ml (0.550-4.780); TRIGLYCERIDES 113 mg/dl (<150)
== END | disposition home or self-care (01) ==
LOC: LAB 08:50
PROVIDERS: ATTEND Internal Medicine Endocrinology, Diabetes & Metabolism
DX: I10 Essential (primary) hypertension (principal); E55.9 Vitamin D deficiency, unspecified; E03.4 Atrophy of thyroid (acquired); E78.00 Pure hypercholesterolemia, unspecified; G63 Polyneuropathy in diseases classified elsewhere; I89.0 Lymphedema, not elsewhere classified

== ENCOUNTER → 2023-01-11 | Outpatient (CLI) | payer MEDICARE ==
[2023-01-11 09:29] LABS: BASO % 0.2 % (0.0-1.0); EOS # 0.1 10*3/uL (0.0-0.4); EOS % 2.2 % (1.0-4.0); HEMATOCRIT 44.5 % (37.0-47.0); LYMPH % 17.6 % (27.0-41.0); MEAN CELL VOLUME 94.9 fl (81.0-99.0); MEAN CORPUSCULAR HGB 30.1 pg (27.0-31.0); MEAN CORPUSCULAR HGB CONC 31.7 g/dl (33.0-37.0); MEAN PLATELET VOLUME 9.6 fl (9.6-12.3); MONO # 0.5 10*3/uL (0.1-1.0); MONO % 8.1 % (3.0-9.0); NEUT # 4.2 10*3/uL (2.3-7.9); NEUT % 71.7 % (47.0-73.0); PLATELET COUNT AUTOMATED 150 10*3/uL (130-400); RED BLOOD COUNT 4.69 10*6/uL (4.10-5.10); RED CELL DISTRI WIDTH 13.3 % (0-14.5); WHITE BLOOD COUNT 5.8 10*3/uL (4.8-10.8)
[2023-01-11 10:10] LABS: ALKALINE PHOSPHATASE 66 U/L (46-116); BUN 20 mg/dl (9-23); CHLORIDE 109 mmol/L (98-107); CHOLESTEROL 145 mg/dL (<200); FREE T4 1.34 ng/dl (0.89-1.76); LDL CHOLESTEROL 84 mg/dL (9-159); POTASSIUM 4.6 mmol/L (3.4-5.1); SGPT/ALT 25 U/L (10-49); THYROID STIM HORMONE (HS) 1.297 uIU/ml (0.550-4.780); TOTAL PROTEIN 6.9 gm/dL (6.0-8.0); TRIGLYCERIDES 79 mg/dl (<150)
== END | disposition home or self-care (01) ==
LOC: LAB 09:03
PROVIDERS: ATTEND Internal Medicine Endocrinology, Diabetes & Metabolism
DX: I10 Essential (primary) hypertension (principal); I89.0 Lymphedema, not elsewhere classified; E03.4 Atrophy of thyroid (acquired); E78.2 Mixed hyperlipidemia; E55.9 Vitamin D deficiency, unspecified; G63 Polyneuropathy in diseases classified elsewhere

== ENCOUNTER → 2023-04-20 | Outpatient (CLI) | payer MEDICARE ==
[2023-04-20 08:59] LABS: BASO % 0.3 % (0.0-1.0); EOS # 0.1 10*3/uL (0.0-0.4); EOS % 2.2 % (1.0-4.0); HEMATOCRIT 43.5 % (37.0-47.0); MEAN CELL VOLUME 95.4 fl (81.0-99.0); MEAN CORPUSCULAR HGB 30.5 pg (27.0-31.0); MEAN PLATELET VOLUME 9.9 fl (9.6-12.3); MONO # 0.5 10*3/uL (0.1-1.0); NEUT # 4.1 10*3/uL (2.3-7.9); NEUT % 70.3 % (47.0-73.0); PLATELET COUNT AUTOMATED 143 10*3/uL (130-400); RED BLOOD COUNT 4.56 10*6/uL (4.10-5.10); RED CELL DISTRI WIDTH 13.4 % (0-14.5); WHITE BLOOD COUNT 5.8 10*3/uL (4.8-10.8)
[2023-04-20 09:41] LABS: BUN 16 mg/dl (9-23); CHLORIDE 110 mmol/L (98-107); CHOLESTEROL 131 mg/dL (<200); FREE T4 1.46 ng/dl (0.89-1.76); LDL CHOLESTEROL 79 mg/dL (9-159); POTASSIUM 4.8 mmol/L (3.4-5.1); SGPT/ALT 30 U/L (10-49); TRIGLYCERIDES 70 mg/dl (<150)
== END | disposition home or self-care (01) ==
LOC: LAB 08:28
PROVIDERS: ATTEND Internal Medicine Endocrinology, Diabetes & Metabolism
DX: E55.9 Vitamin D deficiency, unspecified (principal); E78.2 Mixed hyperlipidemia; E03.4 Atrophy of thyroid (acquired); G63 Polyneuropathy in diseases classified elsewhere; I10 Essential (primary) hypertension; I89.0 Lymphedema, not elsewhere classified

== ENCOUNTER → 2023-07-20 | Outpatient (CLI) | payer MEDICARE ==
[2023-07-20 09:10] LABS: BASO % 0.5 % (0.0-1.0); EOS # 0.1 10*3/uL (0.0-0.4); EOS % 1.5 % (1.0-4.0); HEMATOCRIT 42.8 % (37.0-47.0); LYMPH # 0.9 10*3/uL (1.3-4.4); MEAN CELL VOLUME 93.2 fl (81.0-99.0); MEAN CORPUSCULAR HGB 30.7 pg (27.0-31.0); MEAN CORPUSCULAR HGB CONC 32.9 g/dl (33.0-37.0); MEAN PLATELET VOLUME 9.8 fl (9.6-12.3); MONO # 0.4 10*3/uL (0.1-1.0); MONO % 6.8 % (3.0-9.0); PLATELET COUNT AUTOMATED 149 10*3/uL (130-400); RED BLOOD COUNT 4.59 10*6/uL (4.10-5.10); WHITE BLOOD COUNT 5.5 10*3/uL (4.8-10.8)
[2023-07-20 09:37] LABS: ALKALINE PHOSPHATASE 60 U/L (46-116); BUN 11 mg/dl (9-23); CHLORIDE 111 mmol/L (98-107); CHOLESTEROL 148 mg/dL (<200); FREE T4 1.63 ng/dl (0.89-1.76); LDL CHOLESTEROL 89 mg/dL (9-159); POTASSIUM 4.6 mmol/L (3.4-5.1); SGPT/ALT 22 U/L (5-49); TOTAL PROTEIN 6.5 gm/dL (6.0-8.0); TRIGLYCERIDES 72 mg/dl (<150)
== END | disposition home or self-care (01) ==
LOC: LAB 08:42
PROVIDERS: ATTEND Internal Medicine Endocrinology, Diabetes & Metabolism
DX: I10 Essential (primary) hypertension (principal); I89.0 Lymphedema, not elsewhere classified; E03.4 Atrophy of thyroid (acquired); E78.2 Mixed hyperlipidemia; E55.9 Vitamin D deficiency, unspecified; G63 Polyneuropathy in diseases classified elsewhere

== ENCOUNTER → 2023-10-23 | Outpatient (CLI) | payer MEDICARE ==
[2023-10-23 08:55] LABS: BASO % 0.6 % (0.0-1.0); EOS # 0.1 10*3/uL (0.0-0.4); EOS % 1.9 % (1.0-4.0); HEMATOCRIT 46.1 % (37.0-47.0); LYMPH # 1.1 10*3/uL (1.3-4.4); LYMPH % 22.1 % (27.0-41.0); MEAN CELL VOLUME 94.1 fl (81.0-99.0); MEAN CORPUSCULAR HGB CONC 30.8 g/dl (33.0-37.0); MEAN PLATELET VOLUME 9.5 fl (9.6-12.3); MONO # 0.5 10*3/uL (0.1-1.0); MONO % 9.9 % (3.0-9.0); NEUT # 3.4 10*3/uL (2.3-7.9); NEUT % 65.3 % (47.0-73.0); PLATELET COUNT AUTOMATED 143 10*3/uL (130-400); RED CELL DISTRI WIDTH 13.4 % (0-14.5); WHITE BLOOD COUNT 5.2 10*3/uL (4.8-10.8)
[2023-10-23 09:20] LABS: BUN 13 mg/dl (9-23); CHLORIDE 109 mmol/L (98-107); CHOLESTEROL 149 mg/dL (<200); FREE T4 1.58 ng/dl (0.89-1.76); LDL CHOLESTEROL 86 mg/dL (9-159); POTASSIUM 4.8 mmol/L (3.4-5.1); SGPT/ALT 38 U/L (5-49); TRIGLYCERIDES 67 mg/dl (<150)
== END | disposition home or self-care (01) ==
LOC: LAB 08:37
PROVIDERS: ATTEND Internal Medicine Endocrinology, Diabetes & Metabolism
DX: I10 Essential (primary) hypertension (principal); E89.0 Postprocedural hypothyroidism; E03.4 Atrophy of thyroid (acquired); E78.2 Mixed hyperlipidemia; E55.9 Vitamin D deficiency, unspecified; G63 Polyneuropathy in diseases classified elsewhere

== ENCOUNTER → 2024-01-22 | Outpatient (CLI) | payer MEDICARE ==
[2024-01-22 10:23] LABS: BASO % 0.5 % (0.0-1.0); EOS # 0.1 10*3/uL (0.0-0.4); EOS % 1.9 % (1.0-4.0); HEMATOCRIT 42.4 % (37.0-47.0); LYMPH # 1.1 10*3/uL (1.3-4.4); LYMPH % 17.9 % (27.0-41.0); MEAN CELL VOLUME 95.3 fl (81.0-99.0); MEAN CORPUSCULAR HGB 30.3 pg (27.0-31.0); MEAN CORPUSCULAR HGB CONC 31.8 g/dl (33.0-37.0); MEAN PLATELET VOLUME 9.9 fl (9.6-12.3); MONO # 0.5 10*3/uL (0.1-1.0); MONO % 7.8 % (3.0-9.0); NEUT # 4.3 10*3/uL (2.3-7.9); NEUT % 71.7 % (47.0-73.0); PLATELET COUNT AUTOMATED 149 10*3/uL (130-400); RED BLOOD COUNT 4.45 10*6/uL (4.10-5.10); RED CELL DISTRI WIDTH 13.6 % (0-14.5); WHITE BLOOD COUNT 5.9 10*3/uL (4.8-10.8)
[2024-01-22 10:56] LABS: BUN 13 mg/dl (9-23); CHLORIDE 109 mmol/L (98-107); CHOLESTEROL 130 mg/dL (<200); FREE T4 1.56 ng/dl (0.89-1.76); LDL CHOLESTEROL 73 mg/dL (9-159); POTASSIUM 4.7 mmol/L (3.4-5.1); SGPT/ALT 38 U/L (5-49); TRIGLYCERIDES 58 mg/dl (<150)
== END | disposition home or self-care (01) ==
LOC: LAB 10:04
PROVIDERS: ATTEND Internal Medicine Endocrinology, Diabetes & Metabolism
DX: I10 Essential (primary) hypertension (principal); E03.9 Hypothyroidism, unspecified; E78.2 Mixed hyperlipidemia; E55.9 Vitamin D deficiency, unspecified; G63 Polyneuropathy in diseases classified elsewhere; I89.0 Lymphedema, not elsewhere classified

== ENCOUNTER → 2024-04-25 | Outpatient (CLI) | payer MEDICARE, OTHER ==
[2024-04-25 09:01] LABS: BASO % 0.5 % (0.0-1.0); EOS # 0.1 10*3/uL (0.0-0.4); EOS % 2.4 % (1.0-4.0); HEMATOCRIT 43.5 % (37.0-47.0); LYMPH # 1.1 10*3/uL (1.3-4.4); LYMPH % 18.6 % (27.0-41.0); MEAN CELL VOLUME 95.8 fl (81.0-99.0); MEAN CORPUSCULAR HGB 30.2 pg (27.0-31.0); MEAN CORPUSCULAR HGB CONC 31.5 g/dl (33.0-37.0); MEAN PLATELET VOLUME 9.9 fl (9.6-12.3); MONO # 0.5 10*3/uL (0.1-1.0); MONO % 8.2 % (3.0-9.0); NEUT # 4.1 10*3/uL (2.3-7.9); NEUT % 70.1 % (47.0-73.0); PLATELET COUNT AUTOMATED 156 10*3/uL (130-400); RED BLOOD COUNT 4.54 10*6/uL (4.10-5.10); RED CELL DISTRI WIDTH 13.9 % (0-14.5); WHITE BLOOD COUNT 5.8 10*3/uL (4.8-10.8)
[2024-04-25 09:34] LABS: BUN 11 mg/dl (9-23); CHLORIDE 110 mmol/L (98-107); CHOLESTEROL 131 mg/dL (<200); FREE T4 1.68 ng/dl (0.89-1.76); LDL CHOLESTEROL 73 mg/dL (9-159); POTASSIUM 4.5 mmol/L (3.4-5.1); SGPT/ALT 45 U/L (5-49); TRIGLYCERIDES 59 mg/dl (<150)
== END | disposition home or self-care (01) ==
LOC: LAB 08:45
PROVIDERS: ATTEND Internal Medicine Endocrinology, Diabetes & Metabolism
DX: I10 Essential (primary) hypertension (principal); E78.5 Hyperlipidemia, unspecified; E55.9 Vitamin D deficiency, unspecified; G63 Polyneuropathy in diseases classified elsewhere; I89.0 Lymphedema, not elsewhere classified

== ENCOUNTER → 2024-07-19 | Outpatient (CLI) | payer MEDICARE, OTHER ==
[2024-07-19 09:39] LABS: BASO % 0.3 % (0.0-1.0); EOS # 0.1 10*3/uL (0.0-0.4); HEMATOCRIT 44.2 % (37.0-47.0); MEAN CELL VOLUME 95.5 fl (81.0-99.0); MEAN CORPUSCULAR HGB CONC 31.4 g/dl (33.0-37.0); MEAN PLATELET VOLUME 10.1 fl (9.6-12.3); MONO # 0.5 10*3/uL (0.1-1.0); MONO % 8.7 % (3.0-9.0); NEUT # 4.4 10*3/uL (2.3-7.9); NEUT % 72.5 % (47.0-73.0); PLATELET COUNT AUTOMATED 171 10*3/uL (130-400); RED BLOOD COUNT 4.63 10*6/uL (4.10-5.10); RED CELL DISTRI WIDTH 13.6 % (0-14.5); WHITE BLOOD COUNT 6.1 10*3/uL (4.8-10.8)
[2024-07-19 09:57] LABS: ALKALINE PHOSPHATASE 66 U/L (46-116); BUN 14 mg/dl (9-23); CHLORIDE 109 mmol/L (98-107); CHOLESTEROL 135 mg/dL (<200); FREE T4 1.75 ng/dl (0.89-1.76); LDL CHOLESTEROL 75 mg/dL (9-159); POTASSIUM 4.2 mmol/L (3.4-5.1); SGPT/ALT 28 U/L (5-49); TRIGLYCERIDES 46 mg/dl (<150)
== END | disposition home or self-care (01) ==
LOC: LAB 08:33
PROVIDERS: ATTEND Internal Medicine Endocrinology, Diabetes & Metabolism
DX: I89.0 Lymphedema, not elsewhere classified (principal); I10 Essential (primary) hypertension; E03.4 Atrophy of thyroid (acquired); E78.2 Mixed hyperlipidemia; E55.9 Vitamin D deficiency, unspecified

== ENCOUNTER → 2024-10-18 | Outpatient (CLI) | payer MEDICARE, OTHER ==
[2024-10-18 09:39] LABS: BASO % 0.6 % (0.0-1.0); EOS # 0.1 10*3/uL (0.0-0.4); HEMATOCRIT 45.6 % (37.0-47.0); MEAN CELL VOLUME 94.4 fl (81.0-99.0); MEAN CORPUSCULAR HGB 29.8 pg (27.0-31.0); MEAN CORPUSCULAR HGB CONC 31.6 g/dl (33.0-37.0); MEAN PLATELET VOLUME 9.8 fl (9.6-12.3); MONO # 0.5 10*3/uL (0.1-1.0); MONO % 7.9 % (3.0-9.0); NEUT # 4.8 10*3/uL (2.3-7.9); NEUT % 73.8 % (47.0-73.0); PLATELET COUNT AUTOMATED 161 10*3/uL (130-400); RED BLOOD COUNT 4.83 10*6/uL (4.10-5.10); RED CELL DISTRI WIDTH 13.2 % (0-14.5); WHITE BLOOD COUNT 6.5 10*3/uL (4.8-10.8)
[2024-10-18 10:22] LABS: BUN 14 mg/dl (9-23); CHLORIDE 108 mmol/L (98-107); CHOLESTEROL 133 mg/dL (<200); FREE T4 1.77 ng/dl (0.89-1.76); LDL CHOLESTEROL 74 mg/dL (9-159); POTASSIUM 4.5 mmol/L (3.4-5.1); SGPT/ALT 32 U/L (5-49); TRIGLYCERIDES 42 mg/dl (<150)
== END | disposition home or self-care (01) ==
LOC: LAB 09:15
PROVIDERS: ATTEND Internal Medicine Endocrinology, Diabetes & Metabolism
DX: I10 Essential (primary) hypertension (principal); E03.4 Atrophy of thyroid (acquired); E78.2 Mixed hyperlipidemia; I89.0 Lymphedema, not elsewhere classified; E55.9 Vitamin D deficiency, unspecified; G63 Polyneuropathy in diseases classified elsewhere

== ENCOUNTER → 2025-01-16 | Outpatient (CLI) | payer MEDICARE, OTHER ==
[2025-01-16 09:39] LABS: BASO % 0.3 % (0.0-1.0); EOS # 0.1 10*3/uL (0.0-0.4); EOS % 1.6 % (1.0-4.0); HEMATOCRIT 42.2 % (37.0-47.0); MEAN CELL VOLUME 93.6 fl (81.0-99.0); MEAN CORPUSCULAR HGB 29.9 pg (27.0-31.0); MEAN PLATELET VOLUME 9.6 fl (9.6-12.3); MONO # 0.5 10*3/uL (0.1-1.0); MONO % 7.3 % (3.0-9.0); NEUT # 4.6 10*3/uL (2.3-7.9); NEUT % 74.1 % (47.0-73.0); PLATELET COUNT AUTOMATED 154 10*3/uL (130-400); RED BLOOD COUNT 4.51 10*6/uL (4.10-5.10); RED CELL DISTRI WIDTH 13.3 % (0-14.5); WHITE BLOOD COUNT 6.2 10*3/uL (4.8-10.8)
[2025-01-16 10:47] LABS: ALKALINE PHOSPHATASE 64 U/L (46-116); BUN 11 mg/dl (9-23); CHLORIDE 110 mmol/L (98-107); POTASSIUM 4.3 mmol/L (3.4-5.1); SGPT/ALT 25 U/L (5-49); TOTAL PROTEIN 6.6 gm/dL (6.0-8.0)
[2025-01-16 10:50] LABS: FREE T4 1.65 ng/dl (0.89-1.76)
== END | disposition home or self-care (01) ==
LOC: LAB 09:10
PROVIDERS: Internal Medicine; ATTEND Internal Medicine Endocrinology, Diabetes & Metabolism
DX: I10 Essential (primary) hypertension (principal); E55.9 Vitamin D deficiency, unspecified; E78.2 Mixed hyperlipidemia; E03.9 Hypothyroidism, unspecified; E78.5 Hyperlipidemia, unspecified

== ENCOUNTER → 2025-04-18 | Outpatient (CLI) | payer MEDICARE, OTHER ==
[2025-04-18 08:55] LABS: BASO # 0.0 10*3/uL (0.0-0.1); BASO % 0.3 % (0.0-1.0); EOS # 0.1 10*3/uL (0.0-0.4); EOS % 1.9 % (1.0-4.0); MEAN CELL VOLUME 94.6 fl (81.0-99.0); MEAN CORPUSCULAR HGB 30.1 pg (27.0-31.0); MEAN PLATELET VOLUME 9.8 fl (9.6-12.3); MONO # 0.5 10*3/uL (0.1-1.0); MONO % 7.9 % (3.0-9.0); NEUT # 4.2 10*3/uL (2.3-7.9); NEUT % 71.5 % (47.0-73.0); NUCLEATED RED BLOOD CELL 0.0 % (0.0-0.0); NUCLEATED RED BLOOD CELL 0.0 10*3/uL (0.0-0.0); PLATELET COUNT AUTOMATED 172 10*3/uL (130-400); RED CELL DISTRI WIDTH 13.5 % (0-14.5)
[2025-04-18 09:35] LABS: BUN 15 mg/dl (9-23); FREE T4 1.58 ng/dl (0.89-1.76); LDL CHOLESTEROL 73 mg/dL (9-159); SGPT/ALT 29 U/L (5-49)
== END | disposition home or self-care (01) ==
LOC: LAB 08:32
PROVIDERS: ATTEND Internal Medicine Endocrinology, Diabetes & Metabolism
DX: I10 Essential (primary) hypertension (principal); I89.0 Lymphedema, not elsewhere classified; E78.2 Mixed hyperlipidemia; E55.9 Vitamin D deficiency, unspecified; G63 Polyneuropathy in diseases classified elsewhere; E03.4 Atrophy of thyroid (acquired)

== ENCOUNTER → 2025-07-18 | Outpatient (CLI) | payer MEDICARE, OTHER ==
[2025-07-18 09:59] LABS: BASO # 0.0 10*3/uL (0.0-0.1); BASO % 0.3 % (0.0-1.0); EOS # 0.1 10*3/uL (0.0-0.4); EOS % 1.8 % (1.0-4.0); MEAN CELL VOLUME 95.8 fl (81.0-99.0); MEAN CORPUSCULAR HGB 30.7 pg (27.0-31.0); MEAN PLATELET VOLUME 9.7 fl (9.6-12.3); MONO # 0.5 10*3/uL (0.1-1.0); MONO % 7.3 % (3.0-9.0); NEUT # 5.0 10*3/uL (2.3-7.9); NEUT % 74.8 % (47.0-73.0); NUCLEATED RED BLOOD CELL 0.0 % (0.0-0.0); NUCLEATED RED BLOOD CELL 0.0 10*3/uL (0.0-0.0); PLATELET COUNT AUTOMATED 175 10*3/uL (130-400); RED CELL DISTRI WIDTH 13.4 % (0-14.5)
[2025-07-18 10:26] LABS: BUN 9 mg/dl (9-23); FREE T4 1.69 ng/dl (0.89-1.76); LDL CHOLESTEROL 73 mg/dL (9-159); SGPT/ALT 30 U/L (5-49)
== END | disposition home or self-care (01) ==
LOC: LAB 09:07
PROVIDERS: ATTEND Internal Medicine Endocrinology, Diabetes & Metabolism
DX: I10 Essential (primary) hypertension (principal); E03.4 Atrophy of thyroid (acquired); E78.2 Mixed hyperlipidemia; E55.9 Vitamin D deficiency, unspecified; I89.0 Lymphedema, not elsewhere classified; G63 Polyneuropathy in diseases classified elsewhere